=== PATIENT | male | born 1960 | race Caucasian/White ===

== ENCOUNTER 2017-12-29 22:58 | Inpatient (IN) | payer OTHER ==
[~2017-12-29] VITALS: Ht 182.9 cm; Wt 59.1 kg
[2017-12-30 01:41] VITALS: BP 137/64
[2017-12-30 07:49] VITALS: BP 128/80
[2017-12-30 15:32] VITALS: BP 139/78
[2017-12-31 07:54] VITALS: BP 137/91
[2018-01-01 07:56] VITALS: BP 139/94
[2018-01-02 07:48] VITALS: BP 150/87
[2018-01-02 16:15] VITALS: BP 152/92
[2018-01-03 07:54] VITALS: BP 100/67
[2018-01-03 15:21] VITALS: BP 118/85
[2018-01-04 07:47] VITALS: BP 116/65
[2018-01-04 15:52] VITALS: BP 142/70
[2018-01-05 07:44] VITALS: BP 129/73
[2018-01-05 14:43] VITALS: BP 132/72
[2018-01-06 09:02] VITALS: BP 116/61
[2018-01-06 15:16] VITALS: BP 115/97
[2018-01-07 09:18] VITALS: BP 138/80
[2018-01-07 15:24] VITALS: BP 144/63
[2018-01-08 08:01] VITALS: BP 129/75
[2018-01-08 16:16] VITALS: BP 118/70
[2018-01-09 07:45] VITALS: BP 114/66
[2018-01-09 16:10] VITALS: BP 138/65
[2018-01-10 07:51] VITALS: BP 124/71
[2018-01-10 16:44] VITALS: BP 143/68
[2018-01-11 15:18] VITALS: BP 131/62
[2018-01-12 07:30] VITALS: BP 127/91
[2018-01-12] MEDS ORDERED: HALDOL10 MG PO (13:13)
[2018-01-12] MEDS ORDERED: ZYPREXA20 MG PO (13:13)
[2018-01-12] MEDS ORDERED: HALDOL5 MG PO (13:13)
== END 2018-01-12 14:20 | disposition home or self-care (01) | DRG 885 ==
LOC: 1WEST 22:58
DX: F20.9 Schizophrenia, unspecified (principal); E87.6 Hypokalemia; R64 Cachexia; R47.1 Dysarthria and anarthria; Z86.73 Personal history of transient ischemic attack (TIA), and cerebral infarction without residual deficits; Z91.19 Patient's noncompliance with other medical treatment and regimen; Z91.14 Patient's other noncompliance with medication regimen; Z68.1 Body mass index [BMI] 19.9 or less, adult
CPT/HCPCS: 97150 GO; 97167 GO; 97530 GO; Q0177